=== PATIENT | female | born 1970 | race Asian ===

== ENCOUNTER 2016-10-26 17:44 | Emergency (ER) | payer OTHER ==
--- NOTE | 2016-10-26 17:57 | UC ---
Hand/Wrist HPI - HPI Summary HPI Summary: 46 YEAR OLD FEMALE PRESENTS WITH COMPLAINS OF LEFT 3RD FINGER PAIN - History Of Current Complaint Stated Complaint: FINGER INJURY Time Seen by Provider: 10/26/16 17:57 Hx Obtained From: Patient Hx Last Menstrual Period: Onset/Duration: Sudden Onset Severity Initially: Moderate Severity Currently: Moderate Pain Scale Used: 0-10 Numeric - 7 Character Of Pain: Sharp Aggravating Factor(s): Movement, Flexion, Extension Alleviating: Nothing Associated Signs And Symptoms: Positive: Swelling, Redness - Allergies/Home Medications Allergies/Adverse Reactions: Allergies Allergy/AdvReac Type Severity Reaction Status Date / Time SUN SCREEN Allergy Severe Rash Uncoded 10/26/16 18:13 Home Medications: Home Medications Multiple Vitamin [Multivitamins] 1 cap PO DAILY 10/26/16 [History Confirmed ] PMH/Surg Hx/FS Hx/Imm Hx Previously Healthy: Yes - Surgical History Surgical History: None Surgery Procedure, Year, and Place: D&C 03/11/2012 - Family History Known Family History: Positive: None - Social History Alcohol Use: None Substance Use Type: None Smoking Status (MU): Never Smoked Tobacco - Immunization History Most Recent Tetanus Shot: up to date per patient Review of Systems Constitutional: Negative Skin: Negative Eyes: Negative ENT: Negative Respiratory: Negative Cardiovascular: Negative Gastrointestinal: Negative Genitourinary: Negative Motor: Negative Neurovascular: Negative Musculoskeletal: Myalgia, Other: - LEFT 3RD FINGER Neurological: Negative Psychological: Negative All Other Systems Reviewed And Are Negative: Yes Physical Exam Triage Information Reviewed: Yes Eye Exam: Normal ENT Exam: Normal Dental Exam: Normal Neck exam: Normal Neck: Positive: 1 Respiratory Exam: Normal Cardiovascular Exam: Normal Abdominal Exam: Normal Musculoskeletal: Positive: Other: - LEFT 3RD FINGER Neurological Exam: Normal Psychological Exam: Normal Skin Exam: Normal Hand/Wrist Course/Dx - Differential Dx/Diagnosis Provider Diagnoses: LEFT 3RD FINGER CONTUSION Discharge - Discharge Plan Condition: Stable Disposition: HOME Prescriptions: Ibuprofen TAB* [Motrin TAB* 800 MG] 800 mg PO Q8H PRN #30 tab PRN Reason: Pain Patient Education Materials: Finger Sprain (ED) Referrals: No Primary Care Phys,NOPCP [Primary Care Provider] - Lenin Arreguin MD [Medical Doctor] -
[2016-10-26 18:13] VITALS: BP 116/76
--- NOTE | 2016-10-26 18:32 | RAD ---
HISTORY: Left third finger trauma COMPARISONS: None VIEWS: 3, Frontal, lateral, and oblique views of the third digit of the left hand FINDINGS: BONE DENSITY: Normal. BONES: There is no displaced fracture. JOINTS: There is no arthropathy. ALIGNMENT: There is no dislocation. SOFT TISSUES: Unremarkable. OTHER FINDINGS: None. IMPRESSION: NO ACUTE OSSEOUS INJURY. IF SYMPTOMS PERSIST, RECOMMEND REPEAT IMAGING.
== END 2016-10-26 18:49 | disposition home or self-care (01) ==
LOC: UCEAST 17:44
DX: S60.032A Contusion of left middle finger without damage to nail, initial encounter (principal); X58.XXXA Exposure to other specified factors, initial encounter; Y93.9 Activity, unspecified; Y92.9 Unspecified place or not applicable
CPT/HCPCS: 73140; 99212; G0463

== ENCOUNTER 2017-04-28 13:01 | Emergency (ER) | payer OTHER, BC ==
[2017-04-28 16:08] VITALS: BP 134/84
--- NOTE | 2017-04-28 18:58 | UC ---
Rui Brown Rebecca, scribed for Garfield Chi MD on 04/28/17 at 1613 . Respiratory Complaint HPI - HPI Summary HPI Summary: Pt is a 46 y/o F who presents to [facility] c/o rhinorrhea, sore throat, myalgias and subjective fever, all of which began yesterday. Today, the symptoms worsened , prompting her to come to [facility]. ON triage, pain was moderate, ranked 6/10. Sx aggravated and alleviated by nothing. Pt reports that her had flu- like symptoms for a week, though less severely. - History of Current Complaint Chief Complaint: UCGeneralIllness Stated Complaint: FEVER SORE THROAT Time Seen by Provider: 04/28/17 14:50 Hx Obtained From: Patient Hx Last Menstrual Period: 03/29/17 Onset/Duration: Lasting Days, Still Present Severity Currently: Moderate Pain Intensity: 6 Pain Scale Used: 0-10 Numeric Aggravating Factors: Nothing Alleviating Factors: Nothing Associated Signs And Symptoms: Positive: Fever - Allergies/Home Medications Allergies/Adverse Reactions: Allergies Allergy/AdvReac Type Severity Reaction Status Date / Time SUN SCREEN Allergy Severe Rash Uncoded 04/28/17 13:35 Home Medications: Home Medications Levothyroxine TAB* [Synthroid TAB*] 1 tab PO DAILY 04/28/17 [History Confirmed 04/28/17] PMH/Surg Hx/FS Hx/Imm Hx - Additional Past Medical History Additional PMH: No PMHx: HTN, DM, CAD Previously Healthy: Yes - Surgical History Surgical History: None Surgery Procedure, Year, and Place: D&C 03/11/2012 - Family History Known Family History: Negative: Hypertension - Social History Alcohol Use: None Substance Use Type: None Smoking Status (MU): Never Smoked Tobacco - Immunization History Most Recent Tetanus Shot: up to date per patient Review of Systems Constitutional: Fever Skin: Negative Eyes: Negative ENT: Sore Throat, Nasal Discharge Respiratory: Negative Cardiovascular: Negative Gastrointestinal: Negative Genitourinary: Negative Motor: Negative Neurovascular: Negative Musculoskeletal: Myalgia Neurological: Negative Psychological: Negative All Other Systems Reviewed And Are Negative: Yes Physical Exam - Summary Physical Exam Summary: VITAL SIGNS: Reviewed. GENERAL: ~Patient is a well developed and nourished female who is lying comfortable in the stretcher. ~Patient is not in any acute respiratory distress. HEAD AND FACE: Normocephalic EYES: PERRLA, EOMI x 2. EARS: Hearing grossly intact. MOUTH: Pharyngeal erythema and runny nose. NECK: Supple, trachea is midline, no adenopathy, no JVD, no carotid bruit. CHEST: Symmetric, no tenderness at palpation LUNGS: Clear to auscultation bilaterally. No wheezing or crackles. CVS: Regular rate and rhythm, S1 and S2 present, no murmurs or gallops appreciated. ABDOMEN: Soft, non-tender. Bowel sounds are normal. No abdominal abnormal pulsations. EXTREMITIES: Full ROM in all major joints, no edema, no cyanosis or clubbing. NEURO: Alert and oriented x 3. No acute neurological deficits. Speech is normal and follows commands. SKIN: Dry and warm Triage Information Reviewed: Yes Vital Signs: Initial Vital Signs Temp 99.1 F 04/28/17 13:30 Pulse 99 04/28/17 13:30 Resp 15 04/28/17 13:30 BP 136/85 04/28/17 13:30 Pulse Ox 99 04/28/17 13:30 Vital Signs Reviewed: Yes Diagnostic Evaluation - Laboratory O2 Sat by Pulse Oximetry: 99 Respiratory Course/Dx - Course Course Of Treatment: Pt is a 46 y/o F who presents to [facility] c/o rhinorrhea, sore throat, myalgias and subjective fever, all of which began yesterday. Today , the symptoms worsened, prompting her to come to [facility]. ON triage, pain was moderate, ranked 6/10. Pt reports that her had flu-like symptoms for a week, though less severely. Influenza A and B and strep throat rapid tests were negative. Pt will be D/C to home with Dx of UTI with Rx for Motrin. She understands and agrees. Allergy to sunscreen noted. The patient was found to have increase BP in UC. The patient will follow up with PCP for better control of BP. - Differential Dx/Diagnosis Differential Diagnosis/HQI/PQRI: Bronchitis, Influenza, Laryngitis, Sinusitis Provider Diagnoses: URI Discharge - Sign-Out/Discharge Documenting (check all that apply): Discharge - Discharge Plan Condition: Stable Disposition: HOME Prescriptions: Ibuprofen TAB* [Motrin TAB* 600 MG] 600 mg PO Q8H PRN #20 tab PRN Reason: Pain Patient Education Materials: Upper Respiratory Infection (DC) Referrals: [facility] [Outside] No Primary Care Phys,NOPCP [Primary Care Provider] - Additional Instructions: FOLLOW UP WITH YOUR PRIMARY CARE PROVIDER WITHIN ONE WEEK FOR HIGH BLOOD PRESSURE NOTED TODAY. Take medications as instructed Increase your fluid intake Return to the if symptoms worsen - Billing Disposition and Condition Condition: STABLE Disposition: HOME The documentation as recorded by the Rui finch Rebecca accurately reflects the service I personally performed and the decisions made by , Garfield Chi MD.
== END 2017-04-28 16:10 | disposition home or self-care (01) ==
LOC: UCEAST 13:01
DX: J06.9 Acute upper respiratory infection, unspecified (principal)
CPT/HCPCS: 87502; 87651; 99212; G0463

== ENCOUNTER 2018-03-30 17:16 | Emergency (ER) | payer OTHER, BC ==
--- NOTE | 2018-03-30 18:18 | ED ---
- HPI Summary HPI Summary: 47 year old female presents with presents with lower abdominal pain for the past couple hours. She states has had the pain before but never this intense. She had an IVF done 6 weeks ago. States she did previous IVF that failed and needs D&C. She admits to nausea but no vomiting. No fever. No urinary symptoms. No previous belly surgeries. denies any cough. No chest pain or shortness breath. She denies any bleeding. States she's been having some vaginal discharge but this has been present throughout the . Has history of hypothyroidism. she states no u/s has not seen iup so is concerned that is having ecoptic. Currently on progesterone and estrogen to support the . She does not have an OB around the area. was seeing dr plummer in [facility] for fertility. - History of Current Complaint Chief Complaint: EDOBProblems Stated Complaint: PAIN IN LOWER BELLY, Time Seen by Provider: 03/30/18 18:10 Pain Intensity: 4 - Assessment Hx Now: No Hx Hysterectomy: No - Allergies/Home Medications Allergies/Adverse Reactions: Allergies Allergy/AdvReac Type Severity Reaction Status Date / Time SUN SCREEN Allergy Severe Rash Uncoded 04/28/17 13:35 PMH/Surg Hx/FS Hx/Imm Hx Endocrine/Hematology History: Reports: Hx Thyroid Disease - STOPPED SYNTHROID SEVERAL YRS AGO Denies: Hx Diabetes Cardiovascular History: Denies: Hx Hypertension Respiratory History: Denies: Hx Asthma, Hx Chronic Obstructive Pulmonary Disease (COPD) GI History: Denies: Hx Ulcer - Cancer History Hx Chemotherapy: No Hx Radiation Therapy: No - Surgical History Surgery Procedure, Year, and Place: D&C 03/11/2012 Infectious Disease History: No Infectious Disease History: Denies: Hx Clostridium Difficile, Hx Hepatitis, Hx Human Immunodeficiency Virus (HIV), Hx of Known/Suspected MRSA, Hx Shingles, Hx Tuberculosis, Hx Known/ Suspected VRE, Hx Known/Suspected VRSA, History Other Infectious Disease, Traveled Outside the [place] in Last 30 Days - Family History Known Family History: Positive: None Negative: Hypertension - Social History Alcohol Use: None Substance Use Type: Reports: None Smoking Status (MU): Never Smoked Tobacco Review of Systems Negative: Fever Negative: Chest Pain Negative: Shortness Of Breath Positive: Abdominal Pain, Nausea. Negative: Vomiting, Diarrhea Negative: dysuria All Other Systems Reviewed And Are Negative: Yes Physical Exam - Physical Exam Triage Information Reviewed: Yes Vital Signs Reviewed: Yes Appearance: Positive: Well-Appearing Skin: Positive: Warm, Dry Head/Face: Positive: Normal Head/Face Inspection Eyes: Positive: Normal, Conjunctiva Clear ENT: Positive: Pharynx normal Respiratory/Lung Sounds: Positive: Clear to Auscultation, Breath Sounds Present Cardiovascular: Positive: Normal, RRR Abdomen Description: Positive: Soft, Other: - tenderness LLQ Bowel Sounds: Positive: Present Musculoskeletal: Positive: Normal Neurological: Positive: Normal Psychiatric: Positive: Normal Diagnostics - Vital Signs Vital Signs Temp Pulse Resp BP Pulse Ox 03/30/18 17:23 98.6 F 67 16 162/107 100 - Laboratory Result Diagrams: 03/30/18 18:19 03/30/18 18:23 Lab Statement: Any lab studies that have been ordered have been reviewed, and results considered in the medical decision making process. - Ultrasound No standard instances Ultrasound Interpretation Completed By: Radiologist Summary of Ultrasound Findings: IMPRESSION: No IUP seen. There is a possible cervical ectopic versus complex nabothian. cyst. No adnexal pathology. Serial beta-hCG levels and follow up ultrasound recommended. Re-Evaluation - Re-Evaluation First Eval Re-Evaluation Time: 21:30 Change: Unchanged Comment: discussed results, told will need to call ob for dispo. pain still in LLQ Second Eval Re-Evaluation Time: 00:15 Comment: dr rand came and patient decide on mtx. waiting for dose from pharmacy , explained importance of getting labs drawn in coming days Course/Dx - Course Course Of Treatment: 47 year old female presents with presents with lower abdominal pain for the past couple hours. She had an IVF done 6 weeks ago. States she did previous IVF that failed and needs D&C. She admits to nausea but no vomiting. No fever. No urinary symptoms. was seeing dr plummer in [facility] for fertility. on exam has tenderness LLQ. wbc 11. hcg 5389 which is increased since when lab was drawn yesterday which as 2651. u/s shows possible cervical ectopic. spoke with dr rand at 21:30. dr rand came to ED and discussed with patient that will treat with methotrexate. gave dose here. discussed needs to get hcg redrawn in coming days. patient understand and agrees with plan. - Differential Diagnosis/HQI/PQRI: Ectopic , Intrauterine , UTI - Diagnoses Provider Diagnoses: Ectopic Discharge - Sign-Out/Discharge Documenting (check all that apply): Patient Departure Patient Received Moderate/Deep Sedation with Procedure: No - Discharge Plan Condition: Good Disposition: HOME Patient Education Materials: Ectopic (DC) Referrals: Radu Rand MD [Medical Doctor] - Additional Instructions: you have been given a dose of medication called methotrexate you will need an hcg drawn on Apr 03 and at the lab, on Wednesday lab is closed so will need to come to the ED follow up with dr rand office on wednesday, call office later this week for appointment if they do not call you Return to ED if develop fever or any new or worsening symptoms - Billing Disposition and Condition Condition: GOOD Disposition: Home
[2018-03-30 18:19] LABS: Urine Appearance Clear; Urine Bilirubin Negative (Negative); Urine Blood Negative (Negative); Urine Color Yellow; Urine Glucose Negative (Negative); Urine Ketones 1+ (Negative); Urine Nitrite Negative (Negative); Urine Protein Negative (Negative); Urine Specific Gravity 1.019 (1.010-1.030); Urine Urobilinogen Negative (Negative)
[2018-03-30 18:35] LABS: ABS Basophils 0.1 10^3/ul (0-0.2); ABS Lymphocytes 3.3 10^3/ul (1.0-4.8); ABS Monocytes 0.6 10^3/ul (0-0.8); ABS Neutrophils 6.4 10^3/ul (1.5-7.7); ABS Nucleated RBC 0 10^3/ul; Eosinophil % 8.6 %; Hematocrit 40 % (35-47); Hemoglobin 13.6 g/dl (12.0-16.0); Mean Corpuscular HGB Conc 34 g/dl (31-36); Mean Corpuscular Hemoglobin 31 pg (27-31); Mean Corpuscular Volume 91 fL (80-97); Mean Platelet Volume 10.2 fL (7.4-10.4); Nucleated Red Blood Cells % 0.1; Platelet Count 281 10^3/ul (150-450); Red Blood Count 4.41 10^6/ul (4.00-5.40); Red Cell Distribution Width 13 % (10.5-15); White Blood Count 11.4 10^3/ul (3.5-10.8)
[2018-03-30 18:52] LABS: Albumin 4.7 g/dL (3.2-5.2); Albumin/Globulin Ratio 1.4 (1-3); BUN/Creatinine Ratio 22.2 (8-20); C Reactive Protein 9.75 mg/L (<8.01); Calcium 9.3 mg/dL (8.6-10.3); EGFR African American 147.1 (>60); EGFR Non-African American 121.5 (>60); Globulin 3.4 g/dL (2-4); Total Bilirubin 0.3 mg/dL (0.2-1.0); Total Protein 8.1 g/dL (6.4-8.9)
[2018-03-31] MEDS ORDERED: METHOTREXATE IVPB ONE (00:30)
--- NOTE | 2018-03-31 01:12 | CONS ---
CC: Dr. Cornelio Rush, at [facility], fax number [phone] * ER CONSULTATION: Dept of [facility] DATE OF CONSULT: 03/30/18 HISTORY OF PRESENT ILLNESS: This patient is a 47-year-old 2, now para 0020 [facility] quadrant [facility]. The patient and her have undergone two IVF cycles. The previous one ended with a blighted ovum and required a D&C. Most recently the patient had another IVF cycle last month and her ultrasounds and labs have been followed closely by her infertility specialist from [facility]. Yesterday, the patient's hCG level was approximately 2600 and an ultrasound which was performed in [place] noted no intrauterine and no visible adnexal abnormalities. The patient denies any vaginal bleeding. Her abdominal pain is currently very mild. PAST MEDICAL HISTORY: Hypothyroidism. PAST SURGICAL HISTORY: D&C. OB HISTORY: 2, para 0-0-2-0 including this . MEDICATIONS: Levothyroxine. ALLERGIES: No known drug allergies. SOCIAL HISTORY: No current tobacco or drug use. REVIEW OF SYSTEMS: General: Negative. Cardiovascular: Negative. Respiratory : Negative. GI: Negative. Musculoskeletal: Negative. : Negative. PHYSICAL EXAM: Vital Signs: Pulse 65, blood pressure 127/88, O2 sat 99%. General: In no acute distress. Appears comfortable. Good historian. Abdomen: Soft, no hepatosplenomegaly. Mild tenderness to palpation in the left lower quadrant. No rebound or guarding, although exam was not vigorous. Pelvic examination deferred. DIAGNOSTIC STUDIES: Pelvic ultrasound: Uterus with no intrauterine seen. Endometrial thickness 15.7 mm and approximately 2 cm anterior fundal fibroid present. Neither ovary or adnexa were able to be visualized. Impression: No IUP seen. There is a possible cervical ectopic versus complex nabothian cyst. No adnexal pathology. LABORATORY INFORMATION TODAY: White blood cell count 11.4, hemoglobin 13.6, hematocrit 40, platelets 281, creatinine 0.54, AST 14, ALT 11, and hCG 5389. Blood type O positive. Antibody screen negative. IMPRESSION: A 47-year-old 2, para 0 status post recent in vitro fertilization with hCG of over 5000 and no visible intrauterine with transvaginal ultrasound. Considering this, I explained that the likelihood of ectopic is extremely high. Considering her discomfort in the left lower quadrant, it is possible that she does have an ectopic on that side. However, considering she is very stable and there is no evidence of an acute abdomen, I believe that she is a reasonable candidate for methotrexate treatment. The patient understands that the other option would be surgical evaluation. We discussed that methotrexate may be a little less effective with a single dose at an hCG level of greater than 5000. After discussion, the patient desired to proceed with the methotrexate tonight. PLAN: Methotrexate 50 mg per meter squared IM. Today is day 1 of the protocol. On day 4, 04/03/18 she will have her blood drawn at the hospital for an hCG quant level. She will then also return on day 7, which 04/06/18 for another lab draw. She understands that we will be evaluating the decrease in hCG level between days 4 and day 7 to determine whether she requires a second dose of methotrexate. In the meantime the patient understands that she may have side effects from the methotrexate, which we discussed. She also understands that it is possible that the ectopic could rupture and have complications in the meantime, so she is to call or return immediately if she has the onset of severe abdominal pain. She also understands that she may experience some vaginal bleeding. I instructed her to discontinue her prescribed hormones and her vitamins. All of these things were discussed with the patient at length and all of her questions were answered today. We will follow up with her next week. [id number]/[facility] #: [id number] SHARDA
[2018-03-31 01:19] VITALS: BP 124/76
== END 2018-03-31 01:19 | disposition home or self-care (01) ==
LOC: ED 17:16
DX: O00.80 Other ectopic pregnancy without intrauterine pregnancy (principal); E03.9 Hypothyroidism, unspecified
CPT/HCPCS: 36415; 76817; 80053; 81003; 84702; 85025; 86140; 86850; 86900; 86901; 99283; J9250

== ENCOUNTER 2019-01-04 08:54 | Emergency (ER) | payer OTHER, BC ==
[2019-01-04 09:17] VITALS: BP 128/66
--- NOTE | 2019-01-04 12:20 | UC ---
Complaint Female HPI - History Of Current Complaint Chief Complaint: UCGU Stated Complaint: UTI Time Seen by Provider: 01/04/19 09:13 Hx Obtained From: Patient Hx Last Menstrual Period: 12/23/18 Onset/Duration: Gradual Onset, Lasting Days - 1 DAY, Still Present Severity Initially: Mild Severity Currently: Mild Pain Intensity: 0 Pain Scale Used: 0-10 Numeric Character: Burning Aggravating Factor(s): Urination Alleviating Factor(s): Nothing Associated Signs And Symptoms: Negative: Fever, Back Pain, Vaginal Bleeding/ Discharge, Nausea - Allergies/Home Medications Allergies/Adverse Reactions: Allergies Allergy/AdvReac Type Severity Reaction Status Date / Time SUN SCREEN Allergy Severe Rash Uncoded 04/28/17 13:35 mold Allergy resp issues Uncoded 01/04/19 09:18 Home Medications: Home Medications medroxyPROGESTERone TAB* [Provera TAB*] 1 tab PO DAILY 01/04/19 [History Confirmed 01/04/19] PMH/Surg Hx/FS Hx/Imm Hx Endocrine History: Hypothyroidism - Surgical History Surgical History: None Surgery Procedure, Year, and Place: D&C 03/11/2012 - Family History Known Family History: Positive: None Negative: Hypertension - Social History Alcohol Use: None Substance Use Type: None Smoking Status (MU): Never Smoked Tobacco - Immunization History Most Recent Tetanus Shot: up to date per patient Review of Systems All Other Systems Reviewed And Are Negative: Yes Constitutional: Positive: Negative Respiratory: Positive: Negative Cardiovascular: Positive: Negative Gastrointestinal: Positive: Negative Genitourinary: Positive: Dysuria, Frequency, Urgency Physical Exam Triage Information Reviewed: Yes Appearance: Well-Appearing, No Pain Distress, Well-Nourished Vital Signs: Initial Vital Signs Temp 98.4 F 01/04/19 09:13 Pulse 110 01/04/19 09:13 Resp 20 01/04/19 09:13 BP 128/66 01/04/19 09:13 Pulse Ox 100 01/04/19 09:13 Laboratory Tests 01/04/19 09:16 POC Urine Color Yellow POC Urine Clarity Clear POC Urine pH 6.5 POC Ur Specif Benson 1.015 POC Urine Protein Negative POC Ur Glucose (UA) Negative POC Urine Ketones Negative POC Urine Blood Trace-lysed A POC Urine Nitrite Negative POC Urine Bilirubin Negative POC Urine Urobilinogen 0.2 POC U Leukocyte Esteras Trace A Vital Signs Reviewed: Yes Eyes: Positive: Conjunctiva Clear ENT: Positive: Hearing grossly normal Neck: Positive: Supple Respiratory: Positive: No respiratory distress, No accessory muscle use Cardiovascular: Positive: Pulses Normal Abdomen Description: Positive: Nontender, Soft. Negative: CVA Tenderness (R), CVA Tenderness (L), Distended, Guarding Complaint Female Dx - Differential Dx/Diagnosis Provider Diagnosis: UTI (urinary tract infection) Discharge ED - Sign-Out/Discharge Documenting (check all that apply): Patient Departure All imaging exams completed and their final reports reviewed: No Studies - Discharge Plan Condition: Stable Disposition: HOME Prescriptions: Sulfamethox/Trimethoprim DS* [Bactrim DS 800/160 TAB*] 1 tab PO BID #10 tab Patient Education Materials: Urinary Tract Infection in Women (ED) Referrals: Tonya Maya MD [Primary Care Provider] - If Needed Additional Instructions: YOUR URINE HAS BEEN SENT FOR CULTURE AND WE WILL CALL YOU IF YOUR MEDICATION NEEDS TO BE CHANGED. STAY WELL HYDRATED. - Billing Disposition and Condition Condition: STABLE Disposition: Home
== END 2019-01-04 10:00 | disposition home or self-care (01) ==
LOC: UCEAST 08:54
DX: N39.0 Urinary tract infection, site not specified (principal); Z91.09 Other allergy status, other than to drugs and biological substances
CPT/HCPCS: 81003; 87077; 87086; 87186; 99212; G0463